=== PATIENT | female | born 1975 | race Caucasian/White ===

== ENCOUNTER → 2017-02-09 | Outpatient (CLI) | payer BC | LOC: CIMAGING 09:08 | PROVIDERS: ATTEND Family Medicine | DX: R07.81 Pleurodynia (principal) | CPT/HCPCS: 71111-PO ==

== ENCOUNTER 2017-03-31 08:12 | Day surgery (SDC) | payer BC ==
--- NOTE | 2017-03-22 09:51 | GHP ---
[f rep st] PREOP HISTORY AND PHYSICAL DATE OF SURGERY: 03/31/2017 CHIEF COMPLAINT: Appendiceal orifice mass. HISTORY OF PRESENT ILLNESS: Jorge is a 41-year-old female who had open surgery for a ruptured appendix at age 3 and now presents with a cecal mass at the former appendiceal orifice. This was initially incidentally seen about 2 years ago on colonoscopy performed to evaluate bleeding that ultimately was found to be from hemorrhoids. Since then, she has had several colonoscopies as well as CTs and MRIs. Biopsies have always been benign and showed patchy inflammation and possible colitis. She does describe some intermittent right-sided abdominal pain that she has had for years. She tends toward constipation. She was also incidentally found to have an umbilical hernia on imaging, and she does notice an occasional pain in this area. Today, she would like to discuss surgical removal for definitive diagnosis and treatment. She does not want to have the anxiety of not knowing what this mass is and does not want to continue to follow up with imaging and colonoscopies. PAST MEDICAL HISTORY: Patient reports being healthy without any major medical issues. Possible irritable bowel syndrome. PAST SURGICAL HISTORY: Laparotomy for ruptured appendicitis at age 3 as described above. Also, ACL repair, section, D and C. MEDICATIONS: No regular medicine use. ALLERGIES: Vicodin causes nausea. Ibuprofen causes stomach irritation. SOCIAL HISTORY: Patient is and she has 2 children, a daughter and a son ages 1 and 3. She works as a medical resource specialist teacher. She grew up in the [place] [employer]. REVIEW OF SYSTEMS: 10-point review of system negative aside from that in the HPI. PHYSICAL EXAMINATION: GENERAL: Reveals an alert and oriented, well developed, well nourished, 41-year-old female. HEENT: Normocephalic, atraumatic. Pupils equal and round. CHEST: Clear to auscultation bilaterally without wheezes. CARDIAC: Regular rate and rhythm without murmurs. ABDOMEN: Soft, nontender, nondistended with a right-sided McBurney scar and a lower section scar. Very small umbilical hernia. GENITALIA: Deferred. EXTREMITIES: Warm, without edema. NEURO: Grossly intact. IMPRESSION: This is a 41-year-old female with an appendiceal/cecal mass and an umbilical hernia. PLAN: We discussed risks and options, and Jorge is opting for laparoscopic cecectomy. We discussed the very small possibility that it would be a larger surgery involving a partial right hemicolectomy. Her surgery could be difficult secondary to adhesions from her remote appendicitis surgery as well as her section. We discussed risks such as bleeding, infection, injury to a nerve, open surgery, anastomotic leak, and recurrent hernia, and she requests to proceed with both laparoscopic, possible open, cecectomy and open umbilical hernia repair. The patient was seen and examined by both BLAZE Gardner and Alex Clark MD. /[id number]/MODL MTDD
[~2017-03-31 08:12] MED LIST: cefOXitin SODIUM 2 GM in D5W 100 ML IV ONE
--- NOTE | 2017-03-31 08:29 | PDHPUP ---
History & Physical Update H&P update statement: This history and physical update is based on an assessment of the patient which was completed after admission or registration (within 24 hours), but prior to the surgery/procedure. H&P update: H&P reviewed & patient examined, no change in patient's condition since H&P completed
[2017-03-31] MEDS ORDERED: LR 1,000 ML IV ONE (08:54)
[2017-03-31] MEDS ORDERED: LIDOCAINE 1% 2 ML INJ ID PRN (08:54)
[2017-03-31] MEDS ORDERED: HEPARIN 1000 UNIT/1 ML MDV ONE (09:47)
[2017-03-31] MEDS ORDERED: ceFAZolin 1 GM/5 ML SYR ONE (09:47)
[2017-03-31] MEDS ORDERED: BUPIVACAINE 0.5% 30 ML SDV ONE (09:47)
[2017-03-31] MEDS ORDERED: PROPOFOL/EMULSION 500 MG/50 ML BOTTLE IV ONE ×2 (10:02)
[2017-03-31] MEDS ORDERED: LIDOCAINE 2% 5 ML SDV ONE (10:03)
[2017-03-31] MEDS ORDERED: fentaNYL 250 MCG/5 ML INJ ONE (10:03)
[2017-03-31] MEDS ORDERED: ROCURONIUM 100 MG/10 ML VIAL ONE (10:03)
[2017-03-31] MEDS ORDERED: MIDAZOLAM 2 MG/2 ML VIAL IVP ONE (10:16)
--- NOTE | 2017-03-31 10:19 | PDANEPAE ---
ANE History of Present Illness 41 year old healthy female with appendiceal mass for excision. ANE Past Medical History - Cardiovascular History Hx Hypertension: No Hx Arrhythmias: No Hx Chest Pain: No Hx Coronary Artery / Peripheral Vascular Disease: No Hx CHF / Valvular Disease: No Hx Palpitations: No - Pulmonary History Hx COPD: No Hx Asthma/Reactive Airway Disease: No Hx Recent Upper Respiratory Infection: No Hx Oxygen in Use at Home: No Hx Sleep Apnea: No Sleep Apnea Screening Result - Last Documented: Negative - Neurologic History Hx Cerebrovascular Accident: No Hx Seizures: No Hx Dementia: No - Endocrine History Hx Diabetes: No - Renal History Hx Renal Disorders: No - Liver History Hx Hepatic Disorders: No - Neurological & Psychiatric Hx Hx Neurological and Psychiatric Disorders: No - Cancer History Hx Cancer: No - Congenital Disorder History Hx Congenital Disorders: No - GI History Hx Gastrointestinal Disorders: Yes Gastrointestinal History Comment: cecal mass, upper R sided abd pain, umbilical hernia - Other Health History Other Health History: none - Chronic Pain History Chronic Pain: Yes (R abd) - Surgical History Prior Surgeries: ruptured appy age 3. ACL repair L knee. C section '4-14. D and C '11 ANE Review of Systems Review of Systems: - Exercise capacity METS (RN): 4 METS ANE Patient History - Allergies Allergies/Adverse Reactions: hydrocodone Allergy (Verified 03/29/17 11:56) Vomiting latex Allergy (Verified 03/29/17 11:56) Itching - Home Medications Home Medications: Herbals/Supplements -Info Only 1 ea PO DAILY 03/29/17 [Last Taken Unknown] Vit Calc,Iron,Folic [ Vitamins] 1 each PO DAILY 03/29/17 [Last Taken Unknown] - NPO status NPO Since - Liquids (Date): 03/30/17 NPO Since - Liquids (Time): 20:00 NPO Since - Solids (Date): 03/30/17 NPO Since - Solids (Time): 20:00 - Smoking Hx Smoking Status: Never smoked ANE Labs/Vital Signs - Labs - CBC HGB: 13.6 Platelet Count: 262 - Vital Signs Blood Pressure: 123/79 Heart Rate: 79 Respiratory Rate: 16 O2 Sat (%): 97 Height: 162.56 cm Weight: 72.575 kg ANE Physical Exam - Airway Mallampati Score: Class 1 Mouth exam: normal dental/mouth exam - Pulmonary Pulmonary: no respiratory distress - Cardiovascular Cardiovascular: regular rate and rhythym - ASA Status ASA Status: I
[2017-03-31] MEDS ORDERED: MEPERIDINE 25 MG/ML SYR IVP PRN (11:16)
[2017-03-31] MEDS ORDERED: DEXAMETHASONE 4 MG/ML VIAL IVP PRN (11:16)
[2017-03-31] MEDS ORDERED: HYDROmorphONE/DILAUDID 1 MG/ML INJ IVP PRN (11:16)
[2017-03-31] MEDS ORDERED: OXYCODONE/APAP 5/325 TAB PO PRN (11:16)
[2017-03-31] MEDS ORDERED: PROMETHAZINE HCL 25 MG/ML INJ IVP PRN (11:16)
[2017-03-31] MEDS ORDERED: ALBUTEROL 3 ML DEYVIAL IH PRN (11:16)
[2017-03-31] MEDS ORDERED: LR 500 ML IV PRN (11:16)
[2017-03-31] MEDS ORDERED: fentaNYL 100 MCG/2 ML INJ IVP PRN (11:16)
[2017-03-31] MEDS ORDERED: METOCLOPRAMIDE 10 MG/2 ML VIAL IVP PRN (11:16)
[2017-03-31] MEDS ORDERED: ACETAMINOPHEN 500 MG TAB PO PRN (11:16)
[2017-03-31] MEDS ORDERED: NALOXONE HCL 0.4 MG/ML INJ IVP PRN (11:16)
[2017-03-31] MEDS ORDERED: fentaNYL 100 MCG/2 ML INJ ONE (12:30)
--- NOTE | 2017-03-31 12:34 | POSTOPPROG ---
Post Op Note Date of Operation: 03/31/17 Surgeon: Alex Clark Search And Rescue Officer: Javed Glynn Anesthesiologist: Dr Avelar Anesthesia: GET(General Endotracheal) Pre-op Diagnosis: cecal mass Post-op Diagnosis: same Indication: cecal mass/polyp Procedure: laparoscopy, cecetomy, repair of umbilical hernia(no mesh) Findings: small hernia, cecal polyp Inf/Abcess present in the surg proc area at time of surgery?: No Depth: Organ Space EBL: Minimal Specimen(s): cecum
[2017-03-31 13:52] VITALS: RESP 16; TEMP 98.1
[2017-03-31] MEDS ORDERED: OXYCODONE/APAP 5/325 TAB ONE (13:56)
[2017-03-31 15:30] VITALS: O2SAT 99
[2017-03-31 15:33] VITALS: BP 104/36; PULSE 65
--- NOTE | 2017-04-17 05:44 | GOP ---
[f rep st] OPERATIVE REPORT DATE OF OPERATION: 03/31/2017 SURGEON: Alex Clark MD PREOPERATIVE DIAGNOSIS: Right lower quadrant pain, possible mass in the appendiceal orifice and umbilical hernia. POSTOPERATIVE DIAGNOSIS: Right lower quadrant pain, possible mass in the appendiceal orifice and umbilical hernia. PROCEDURE PERFORMED: Laparoscopic adhesiolysis and partial cecectomy and open umbilical hernia repair. FINDINGS: small umbilical hernia, lots of rlq adhesions, no definite appendiceal mass DESCRIPTION OF PROCEDURE: Patient was taken to the operating room where she received satisfactory general endotracheal anesthesia. She was placed in supine position, prepped and draped in the usual sterile fashion. An infraumbilical incision was made. Dissection was carried down to the rectus sheath. The umbilical hernia and sac were dissected free from subcutaneous tissue and off the back of the umbilical skin. Trocar was introduced through the umbilical hernia sac. Pneumoperitoneum was established. Two other trocars were placed under direct vision in the lower abdomen. Marked adhesions were freed up until the cecum could be mobilized. Appendix was freed up. Mesoappendix was divided with the Harmonic Scalpel. The cecum was then divided , care to avoid injury to the ileocecal valve. This was done with multiple firings of the Endo-SAMANTHA stapler. The specimen was placed in a specimen bag and extracted through the upper midline port site. Completion of adhesiolysis was then done at the point of the patient's right lower quadrant pain and was exactly where these adhesions were encountered. Attention was then turned to the umbilical hernia defect. The sac was excised and the fascia was freshened up and closed in a [id number] type 2 layer closure with interrupted 0 Surgilon mattress sutures in two layers. The subcu was closed with 3-0 Vicryl and the skin with a 4-0 Monocryl subcuticular stitch. The wounds were all infiltrated with 0.5% Marcaine. The other trocar sites were closed with 4-0 Monocryl subcuticular stitches as well. She tolerated the procedure well. She was taken to the recovery room in good condition. There were no complications. Copy requested to: [place] /[id number]/MODL MTDD
== END 2017-03-31 15:11 | disposition home or self-care (01) ==
LOC: FSGY 08:12 → UNDOADMIN 08:12 → F3N 08:12 → FSGY 15:11
PROVIDERS: ATTEND Surgery
PROC: 0DBH4ZX Excision of Cecum, Percutaneous Endoscopic Approach, Diagnostic (ICD-10-PCS; principal; 2017-03-31 09:45)
PROC: 0WQF0ZZ Repair Abdominal Wall, Open Approach (ICD-10-PCS; principal; 2017-03-31 09:45)
DX: K66.0 Peritoneal adhesions (postprocedural) (postinfection) (principal); K42.9 Umbilical hernia without obstruction or gangrene
CPT/HCPCS: J0694; J2250; J2704; J3010